=== PATIENT | female | born 2000 | race Caucasian/White ===

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

== ENCOUNTER 2022-12-14 08:28 | Emergency (ER) | payer OTHER ==
[2022-12-14 08:37] VITALS: BP 135/82; PULSE 77
[2022-12-14] MEDS ORDERED: fentaNYL 100 MCG/2 ML SDV IM ONE (08:47)
[2022-12-14 09:20] LABS: ESTIMATED GFR 108 mL/min (>60)
== END 2022-12-14 10:25 | disposition home or self-care (01) ==
LOC: JP.ED 08:28
DX: K82.8 Other specified diseases of gallbladder (principal); Z88.0 Allergy status to penicillin
CPT/HCPCS: 36415; 80053; 83605; 85025; 96372; 99284; J3010; 99283

== ENCOUNTER 2022-12-22 07:29 | Day surgery (SDC) | payer OTHER ==
[~2022-12-22 07:29] MED LIST: Bupivacaine 0.5%/EPINEPHrine 1:200,000 50 ML MDV ONE
[2022-12-22] MEDS ORDERED: Sodium Chloride 0.9% 1,000 ML IV SCH (08:00)
[2022-12-22] MEDS ORDERED: Acetaminophen 500 MG Tab PO ONE (08:00)
[2022-12-22] MEDS ORDERED: Glycopyrrolate 0.2 MG/ML 5 ML MDV ONE (08:41)
[2022-12-22] MEDS ORDERED: Neostigmine Methylsulfate 1 MG/ML 5 ML Syringe ONE (08:41)
[2022-12-22] MEDS ORDERED: fentaNYL 250 MCG/5 ML SDV ONE ×2 (08:41→10:00)
[2022-12-22] MEDS ORDERED: Rocuronium 50 MG/5 ML Vial ONE (08:41)
[2022-12-22] MEDS ORDERED: Ondansetron 4 MG/2 ML SDV ONE (08:41)
[2022-12-22] MEDS ORDERED: Propofol 200 MG/20 ML SDV ONE (08:41)
[2022-12-22] MEDS ORDERED: Succinylcholine 200 MG/10 ML MDV ONE (08:41)
[2022-12-22] MEDS ORDERED: Dexamethasone 4 MG/ML SDV ONE (08:41)
[2022-12-22] MEDS ORDERED: Scopolamine 1.5 MG Transdermal Patch TOP SCH (09:00)
[2022-12-22] MEDS ORDERED: metroNIDAZOLE/Normal Saline 500 MG in Premix Bag 1 BAG IV ONE (09:00)
[2022-12-22] MEDS ORDERED: cefTRIAXone 2 GM in Sodium Chloride 0.9% 50 ML IV ONE (09:00)
[2022-12-22] MEDS ORDERED: Albuterol/Ipratropium 3.0-0.5 MG/3 ML Neb Soln NEB ONE (09:00)
[2022-12-22] MEDS ORDERED: Indocyanine Green 25 MG SDV ONE (10:09)
[2022-12-22] MEDS ORDERED: Labetalol 20 MG/4 ML Syringe ONE (10:20)
[2022-12-22] MEDS ORDERED: Lactated Ringers 1,000 ML ONE (10:42)
[2022-12-22] MEDS ORDERED: fentaNYL 50 MCG/ML SDV IVPUSH ONE (11:26)
[2022-12-22] MEDS ORDERED: Ondansetron 4 MG/2 ML SDV IVPUSH ONE (11:29)
[2022-12-22] MEDS ORDERED: oxyCODONE 5 MG Tab PO ONE (12:08)
[2022-12-22 14:17] VITALS: BP 113/71; PULSE 72
== END 2022-12-22 14:22 | disposition home or self-care (01) ==
LOC: JP.SDS 07:29 → EDSTATUS 09:15 → JP.SDS 14:22
PROVIDERS: ATTEND Student in an Organized Health Care Education/Training Program
DX: K81.1 Chronic cholecystitis (principal); K82.8 Other specified diseases of gallbladder; F41.9 Anxiety disorder, unspecified; F32.A Depression, unspecified; Z88.0 Allergy status to penicillin; Z79.899 Other long term (current) drug therapy
CPT/HCPCS: 81025; 88304; 94640; A9270-GY; J0330; J0696; J1100; J2405; J2704; J2710; J3010; J3490; J7030; J7120; J7620

== ENCOUNTER 2023-02-21 19:30 | Emergency (ER) | payer OTHER ==
[2023-02-21] MEDS ORDERED: methylPREDNISolone Sodium Succinate 125 MG/2 ML SDV IVPUSH ONE (19:41)
[2023-02-21] MEDS ORDERED: diphenhydrAMINE 50 MG/ML SDV IVPUSH ONE (19:41)
[2023-02-21 19:42] VITALS: BP 118/81; PULSE 73
== END 2023-02-21 20:15 | disposition home or self-care (01) ==
LOC: JP.ED 19:30
DX: T78.40XA Allergy, unspecified, initial encounter (principal); J45.909 Unspecified asthma, uncomplicated; Z88.0 Allergy status to penicillin
CPT/HCPCS: 96374; 96375; 99283; J1200; J2930

== ENCOUNTER 2024-06-23 15:00 | Emergency (ER) | payer OTHER ==
[2024-06-23 16:14] VITALS: BP 115/78; PULSE 82
== END 2024-06-23 16:27 | disposition home or self-care (01) ==
LOC: JP.ED 15:00
DX: T78.40XA Allergy, unspecified, initial encounter (principal); J45.909 Unspecified asthma, uncomplicated; Z88.0 Allergy status to penicillin; Z91.013 Allergy to seafood; Z91.048 Other nonmedicinal substance allergy status; Z79.899 Other long term (current) drug therapy; Z86.16 Personal history of COVID-19; Z90.49 Acquired absence of other specified parts of digestive tract
CPT/HCPCS: 99283